=== PATIENT | female | born 1995 ===

== ENCOUNTER 2016-04-12 21:37 | Emergency (ER) | payer MEDICAID ==
[2016-04-12 23:17] LABS: ABSOLUTE NEUTROPHIL COUNT 4.8 K/mm3 (1.8-7.7); BASO # 0.1 K/mm3 (0.0-0.2); BASO % 0.6 % (0.2-1.0); EOS # 0.1 (0.0-0.5); EOS % 1.1 % (0.9-2.9); HEMATOCRIT 39.5 % (37.0-47.0); HEMOGLOBIN 12.6 gm/l (12.0-16.0); IMM NEUT% 0.1 % (0-1); LYMPH # 2.4 (1.0-4.8); LYMPH % 29.9 % (15-45); MEAN CELL VOLUME 88.4 fl (81.0-99.0); MEAN CORPUSCULAR HEMOGLOBIN 28.2 pg (27.0-31.0); MEAN CORPUSCULAR HGB CONC 31.9 g/dl (33.0-37.0); MEAN PLATELET VOLUME 11.6 fl (7.4-10.4); MONO # 0.6 (0.0-0.8); NEUT % 61.3 % (43-75); PLATELET COUNT 216 K/mm3 (130-400); RED CELL DISTRIBUTION WIDTH 13.1 % (11.5-14.5)
[2016-04-12 23:32] LABS: ALB/GLOB RATIO 1.7 (>1.0); ALBUMIN 3.8 gm/dL (3.5-5.7); CALCIUM 8.8 mg/dL (8.6-10.3)
[2016-04-13 00:29] LABS: URINE BILIRUBIN NEGATIVE (NEGATIVE); URINE BLOOD TRACE (NEGATIVE); URINE GLUCOSE (UA) NEGATIVE (NEGATIVE); URINE LEUKOCYTE ESTERASE NEGATIVE (NEGATIVE); URINE NITRITE NEGATIVE (NEGATIVE); URINE PROTEIN 1+ (NEGATIVE); URINE UROBILINOGEN NORMAL (0-1 mg/dl)
[2016-04-13 00:34] LABS: URINE APPEARANCE CLEAR; URINE COLOR YELLOW
[2016-04-13 00:41] LABS: URINE MUCUS 3+; URINE RBC 0-2 /hpf; URINE WBC 0-1 /hpf
--- NOTE | 2016-04-13 08:12 | US ---
OB ULTRASOUND LESS THAN 14 WEEKS HISTORY: Bleeding. , 7 weeks 3 days. Transabdominal and transvaginal obstetric ultrasound was performed. FINDINGS: INTRAUTERINE GESTATION: Not identified. Uterus: 6.4 x 3.0 x 5.3 cm with an endometrial thickness of up to 5.9 mm. Minimal hypoechoic focus within the endometrium, 4 mm in size. RIGHT OVARY: 3.1 x 2.5 x 1.5 cm cm. LEFT OVARY: 3.1 x 2.7 x 2.2 cm. FOCAL ADNEXAL LESIONS: Shadowing echogenic focus at the left adnexal region, 1.8 x 1.6 x 1.5 cm in size. OVARIAN BLOOD FLOW: Documented bilaterally. FREE FLUID: None. IMPRESSION: 1. No intrauterine gestation is identified. Minimal hypoechoic focus within the endometrium may reflect blood product. This may relate to very early gestation or miscarriage. Technically, ectopic is not excluded. Recommend follow-up with beta hCG levels and/or imaging. 2. 1.8 cm left adnexal echogenic lesion, possibly dermoid. 3. No free fluid. Preliminary report relayed to the Emergency Medicine medical service by Dr. Ferreira on 04/13/2016 at 0025 hours.
--- NOTE | 2016-04-13 08:15 | US ---
LIMITED ABDOMINAL ULTRASOUND HISTORY: Suprapubic pain, . Limited sonography of the right lower quadrant performed, with graded compression. APPENDIX: Not visualized. FREE FLUID: None. REGIONAL MASS EFFECT: None. IMPRESSION: Nonvisualization of the appendix; no free fluid identified. Preliminary report relayed to the Emergency Medicine medical service by Dr. Ferreira on 04/13/2016 at 0025 hours.
== END 2016-04-13 01:18 | disposition home or self-care (01) ==
LOC: ED 21:37
DX: O20.0 Threatened abortion (principal); Z3A.01 Less than 8 weeks gestation of pregnancy